=== PATIENT | female | born 1955 | race Caucasian/White ===

== ENCOUNTER 2016-04-10 11:02 | Emergency (ER) | payer OTHER ==
[~2016-04-10] VITALS: Wt 74.5 kg
[~2016-04-10 11:02] MED LIST: AMLO-145 PO; BACTDS PO; BENA10TA48 PO; NAPR-260 PO; OMEP40CA6 PO; SITA1TAB7 PO
[2016-04-10] MEDS ORDERED: ACET325T33 PO (12:46)
[2016-04-10] MEDS ORDERED: IBUP-1542 PO ×2 (12:46→14:12)
[2016-04-10] MEDS ORDERED: OSLT75C PO (12:46)
[2016-04-10] MEDS ORDERED: ACETAMINOPHEN 325 MG TAB PO ONE (13:00)
[2016-04-10] MEDS ORDERED: IBUPROFEN 600 MG TAB PO ONE (13:00)
[2016-04-10 13:22] LABS: ADD UMIC YES; URINE BILIRUBIN (Dip) 1+ (NEGATIVE); URINE BLOOD (Dip) TRACE (NEGATIVE); URINE COLOR YELLOW (YELLOW); URINE KETONES (Dip) TRACE (NEGATIVE); URINE LEUKOCYTE ESTERASE (Dip) 2+ (NEGATIVE); URINE NITRITE (Dip) POSITIVE (NEGATIVE); URINE TOTAL PROTEIN (Dip) 1+ (NEGATIVE); URINE UROBILINOGEN (Dip) 0.2 E.U./dL (0.1-1.0)
--- NOTE | 2016-04-10 13:22 | ERD ---
ER Documentation Chief Complaint Date/Time DATE: 04/10/16 TIME: 13:16 Chief Complaint COUGH, FEVER, HEADACHE, BODYACHES HPI 61-year-old with a history of diabetes and hypertension presents to the emergency department with complaints of a 1 day history of severe body aches, fever, headache, throat pain, cough, runny nose as well as dysuria. Patient states she has not yet attempted to treat her pain and fever with Tylenol or Motrin. She denies any chest pain, shortness of breath, calf swelling or redness. She denies any recent travel, surgery or prolonged immobilization. She does note multiple sick contacts at her house. She denies any history of COPD or asthma and does not smoke. ROS All systems reviewed and are negative except as per history of present illness. Medications Home Meds Active Scripts Acetaminophen* (Tylenol*) 325 Mg Tablet, 2 TAB PO Q6 Y for PAIN AND OR ELEVATED TEMP, #20 TAB Prov:CELIA THOMPSON PA-C 04/10/16 Ibuprofen* (Motrin*) 600 Mg Tab, 600 MG PO Q6, #30 TAB Prov:CELIA THOMPSON PA-C 04/10/16 Oseltamivir Phosphate* (Tamiflu*) 75 Mg Capsule, 75 MG PO BID for 5 Days, CAP Prov:CELIA THOMPSON PA-C 04/10/16 Sulfamethoxazole-Trimethoprim* (Bactrim* DS) 800-160 Mg Tab, 1 TAB PO BID for 10 Days, TAB Prov:SHILOH RAI NP 03/03/16 Naproxen* (Naprosyn*) 500 Mg Tablet, 500 MG PO BID, #30 TAB Prov:LAURI MAN PA-C 09/16/14 Reported Medications Omeprazole* (Omeprazole*) 40 Mg Capsule.dr, 40 MG PO DAILY 01/23/13 Benazepril Hcl* (Benazepril Hcl*) 10 Mg Tablet, 10 MG PO DAILY 06/28/12 Amlodipine Besylate* (Amlodipine Besylate*) 5 Mg Tablet, 5 MG PO DAILY 06/28/12 Sitagliptin Phos-Metformin Hcl (Janumet) 1 Tab Tablet, 1 TAB PO DAILY 06/28/12 Allergies Allergies: Coded Allergies: Penicillins (Verified Allergy, RASHES, 10/17/13) PMhx/Soc History of Surgery: Yes (HYSTERECTOMY, RT. BREAST SX., UMBILICAL HERNIA REPAIR) Anesthesia Reaction: No Hx Neurological Disorder: No Hx Respiratory Disorders: No Hx Cardiac Disorders: Yes (htn) Hx Psychiatric Problems: No Hx Miscellaneous Medical Probl: Yes (FATTY LIVER, r. breast ca w metastatis to uterus/ovaries) Hx Alcohol Use: No Hx Substance Use: No Hx Tobacco Use: No Smoking Status: Never smoker Physical Exam Vitals Vital Signs Date Time Temp Pulse Resp B/P Pulse Ox O2 Delivery O2 Flow Rate FiO2 04/10/16 11:13 100.4 84 18 143/79 99 Physical Exam Const: Well-developed, well-nourished, nontoxic appearing, in mild distress Head: Atraumatic Eyes: Normal Conjunctiva ENT: Normal External ears. Tympanic membranes without erythema or swelling. Moist mucous membranes. Posterior pharynx moderately erythematous with 1+ tonsillar swelling bilaterally. No evidence of exudate. Uvula midline Neck: Full range of motion..~ No meningismus. Resp: Clear to auscultation bilaterally, no wheezes, rhonchi, or Cardio: Regular rate and rhythm, no murmurs Abd: Soft, non tender, non distended. Normal bowel sounds Skin: No petechiae or rashes Back: No midline or flank tenderness Ext: No cyanosis, or edema Neur: Awake and alert Psych: Normal Mood and Affect Results 24 hrs Current Medications Medications (Trade) Dose Ordered Sig/Shital Route PRN Reason Start Time Stop Time Status Last Admin Dose Admin Acetaminophen (Tylenol Tab) 650 mg ONCE ONCE PO 04/10/16 13:00 04/10/16 13:01 DC 04/10/16 12:52 Ibuprofen (Motrin) 600 mg ONCE ONCE PO 04/10/16 13:00 04/10/16 13:01 DC 04/10/16 12:52 Procedures/MDM Is a 61-year-old female with a history of diabetes and hypertension who presents to the emergency department with flulike symptoms for 1 day as well as dysuria. The patient's clinical presentation is very consistent with an acute viral syndrome. The patient does not exhibit any clinical signs or symptoms concerning for serious bacterial infection or systemic illness. Based on history and clinical exam findings the patient does not appear to have evidence of pneumonia, strep pharyngitis, urinary tract infection, bacteremia, sepsis, or meningitis. For these reasons I do not believe it is necessary to obtain laboratory testing or diagnostic imaging. I believe it would be appropriate for symptom control, and close outpatient primary care follow-up. Due to the recent incidence of influenza in this area as well as her age and medical history I will be treating the patient with Tamiflu over the next 5 days. She is to continue Tylenol and Motrin for pain and fever. Departure Diagnosis: Primary Impression: URI (upper respiratory infection) URI type: unspecified viral URI Qualified Code: J06.9 - Viral upper respiratory tract infection Condition: Stable Patient Instructions: Influenza (Adult) Additional Instructions: Call your primary care doctor TOMORROW for an appointment during the next 1-2 days.See the doctor sooner or return here if your condition worsens before your appointment time. CELIA THOMPSON PA-C Apr 10, 2016 13:21
[2016-04-10] MEDS ORDERED: NITR-58 PO (13:30)
[2016-04-10 13:36] LABS: ICTOTEST NEGATIVE (NEGATIVE)
[2016-04-10 13:37] LABS: BACTERIA,URINE MANY; URINE RBCS 0-2 /HPF (0)
[2016-04-10 14:33] VITALS: BP 132/75; PULSE 77; RESP 18; TEMP 100.4
== END 2016-04-10 14:00 | disposition home or self-care (01) ==
LOC: FTE 11:02
DX: J06.9 Acute upper respiratory infection, unspecified (principal); E11.9 Type 2 diabetes mellitus without complications; I10 Essential (primary) hypertension; Z85.42 Personal history of malignant neoplasm of other parts of uterus; Z85.3 Personal history of malignant neoplasm of breast; Z85.43 Personal history of malignant neoplasm of ovary
CPT/HCPCS: 81001; Z7610; 81003; 99284

== ENCOUNTER 2017-10-23 22:42 | Inpatient (IN) | END 2017-10-26 13:50 | disposition home or self-care (01) | DRG 872 ==

== ENCOUNTER 2017-12-07 16:40 | Emergency (ER) | END 2017-12-07 20:13 | disposition home or self-care (01) ==